=== PATIENT | female | born 1990 | race Hispanic/Latino ===

== ENCOUNTER 2018-05-03 22:04 | Emergency (ER) | payer OTHER ==
[2018-05-03 23:14] LABS: CREATININE 0.6 mg/dL (0.5-1.5); POTASSIUM 3.3 mmol/L (3.5-5.1)
[2018-05-03] MEDS ORDERED: SODIUM CHLORIDE 0.9% 1000ML 1,000 ML IV ONE (23:17)
[2018-05-03 23:18] LABS: ALBUMIN 4.1 g/dL (3.5-5.0); BILIRUBIN,TOTAL 0.2 mg/dL (0.2-1.0)
[2018-05-03 23:21] LABS: BILIRUBIN,URINE Small (NEGATIVE); COLOR,URINE Red (YELLOW); GLUCOSE, URINE (UA) Negative (NEGATIVE); KETONES,URINE Trace mg/dL (NEGATIVE); LEUKOCYTE ESTERASE ,URINE Small (NEGATIVE); NITRATE,URINE Negative (NEGATIVE); OCCULT BLOOD,URINE Large (NEGATIVE); PROTEIN,URINE POS 1+ (NEGATIVE); UROBILINOGEN,URINE 0.2 mg/dL (0.2-1.0)
[2018-05-03 23:24] LABS: APPEARANCE,URINE CLOUDY (CLEAR)
[2018-05-03 23:41] LABS: RBC,URINE >100 /HPF (0-1)
[2018-05-03 23:42] LABS: BACTERIA,URINE Few /HPF (None Seen)
== END 2018-05-04 01:05 | disposition home or self-care (01) ==
LOC: EDH 22:04
DX: O20.0 Threatened abortion (principal); Z3A.01 Less than 8 weeks gestation of pregnancy
CPT/HCPCS: 36415; 76801; 80053; 81001; 81025; 84702; 86900; 86901; 99284; J7030

== ENCOUNTER 2023-09-15 21:15 | Emergency (ER) | payer MEDICAID, OTHER ==
[~2023-09-15] VITALS: Ht 154.9 cm; Wt 67.1 kg
[2023-09-15 21:57] LABS: SARS-CoV-2, RNA, NAAT NEGATIVE SARS CoV-2 (NEGATIVE)
[2023-09-15 22:01] LABS: INFLUENZA TYPE A Negative For Type A (NEGATIVE); INFLUENZA TYPE B Negative For Type B (NEGATIVE)
[2023-09-15 22:40] LABS: RAPID GROUP A STREP positive (NEGATIVE)
[2023-09-15] MEDS ORDERED: LORA10TA7 PO (22:44)
[2023-09-15] MEDS ORDERED: FLUT16H NASAL (22:44)
[2023-09-15] MEDS ORDERED: AMOX1TAB16 PO (22:44)
[2023-09-15 23:03] VITALS: BP 109/70; PULSE 91; RESP 18; O2SAT 96
== END 2023-09-15 23:19 | disposition home or self-care (01) ==
LOC: EDH 21:15
DX: J02.0 Streptococcal pharyngitis (principal); Z20.822 Contact with and (suspected) exposure to COVID-19
CPT/HCPCS: 87635; 87804; 87880